=== PATIENT | female | born 1995 | race Caucasian/White ===

== ENCOUNTER → 2024-07-28 | Outpatient (CLI) | payer BC, SELFPAY ==
[2024-07-29 14:49] LABS: BVAG Candida Negative (Negative); Bacterial Vaginosis Markers Negative (Negative); Candida glabrata Negative (Negative); Candida krusei PCR Negative (Negative); Trichomonas Negative (Negative)
== END | disposition home or self-care (01) ==
LOC: SLDO 16:13
PROVIDERS: Referring Provider Specialist; Visit Provider Specialist
DX: N76.0 Acute vaginitis (principal); A59.01 Trichomonal vulvovaginitis; B37.31 Acute candidiasis of vulva and vagina
CPT/HCPCS: 81514

== ENCOUNTER → 2024-08-10 | Outpatient (CLI) | payer BC, SELFPAY ==
[2024-08-10 15:23] LABS: Collection Type, Urine Clean Catch
[2024-08-10 16:55] LABS: Bacteria,Urine Rare; Bilirubin,Urine Negative (Negative); Blood,Urine Negative (Negative); Clarity,Urine Clear (Clear/Hazy); Color,Urine Yellow (Lt Yel-Yel); Glucose, Urine Negative (Negative); Hyaline Casts,Urine < 1 /hpf (0-1); Ketones,Urine Negative (Negative); Leukocyte Esterase,Urine Negative (Negative); Nitrite,Urine Negative (Negative); Protein,Urine Trace (Neg - Trace); RBC,Urine 1 /hpf (0-3); Specific Gravity,Urine 1.034 (1.001-1.035); Squamous Epithelial Cell,Urine 4 /hpf (0-5); Urobilinogen,Urine Negative mg/dL (0.0-1.0); WBC,Urine 1 /hpf (0-5)
[2024-08-10 17:07] LABS: Amphetamine/Methamp Scrn,U Negative (Negative); Barbiturate Screen,Urine Negative (Negative); Benzodiazepines Screen,Urine Negative (Negative); Benzoylecgonine Screen, Ur Negative (Negative); Fentanyl Screen,Urine Negative (Negative); Opiate Screen,Urine Negative (Negative); THC Screen,Urine Positive (Negative)
== END | disposition home or self-care (01) ==
LOC: SLDO 15:10
PROVIDERS: Referring Provider Specialist; Visit Provider Specialist
DX: Z34.81 Encounter for supervision of other normal pregnancy, first trimester (principal)
CPT/HCPCS: 80307; 81001; 87077; 87086; 87186

== ENCOUNTER → 2024-08-23 | Outpatient (CLI) | payer BC, MEDICAID, SELFPAY ==
[2024-08-23 15:29] LABS: Basophils % (Auto) 0 % (0-2.5); Eosinophils # (Auto) 0.4 Thou/mm3 (0.0-0.5); Eosinophils % (Auto) 4 % (0-10); Hematocrit 37.5 % (36.0-46.0); Hemoglobin 12.6 g/dL (12.0-16.0); Immature Granulocytes % (Auto) 0 % (0-0); Immature Granulocytes Auto 0.02 Thou/mm3 (0.00-0.00); Lymphocytes # (Auto) 2.1 Thou/mm3 (1.0-4.8); Lymphocytes % (Auto) 24 % (10-50); Mean Corpuscular HGB Conc 33.6 g/dl (31.0-37.0); Mean Corpuscular Volume 86 fL (80-100); Monocytes # (Auto) 0.5 Thou/mm3 (0.0-0.8); Monocytes % (Auto) 5 % (0-12); Neutrophils # (Auto) 5.9 Thou/mm3 (1.8-7.7); Neutrophils % (Auto) 67 % (37-80); Nucleated Red Blood Cell % 0 /100 WBC (0); Platelet Count 280 Thou/mm3 (140-440); RDW Standard Deviation 39.6 fL (36.4-46.3); Red Blood Count 4.35 Miln/mm3 (4.00-5.20); White Blood Count 8.8 Thou/mm3 (3.6-11.0)
[2024-08-23 15:40] LABS: Glucose Estimated Average 94 mg/dL (80-131); Hemoglobin A1C 4.9 % Hgb (4.8-6.0)
[2024-08-23 15:51] LABS: Creatinine (Component) 0.6 mg/dL (0.6-1.3); Glucose 81 mg/dL (74-106); eGFR > 60 See Note
[2024-08-23 16:03] LABS: Hepatitis B Surface Antigen Non Reactive (Non React); Rubella, IgG Antibody Reactive (Immune)
[2024-08-23 16:32] LABS: Beta HCG,Quantitative 144714 mIU/mL (<5.0)
[2024-08-23 18:11] LABS: HIV (1&2) Antibody Rapid Non-Reactive
[2024-08-26 19:49] LABS: HCV RNA, PCR <15 NOT DETECTED IU/mL
[2024-08-28 06:54] LABS: HCV RNA, PCR Log IU <1.18 NOT DETECTED Log IU/mL
== END | disposition home or self-care (01) ==
PROVIDERS: PCP Family Medicine; Referring Provider Specialist; Visit Provider Specialist
DX: Z34.81 Encounter for supervision of other normal pregnancy, first trimester (principal)
CPT/HCPCS: 36415; 82565; 82947; 83036; 84702; 85025; 86703; 86762; 86850; 86900; 86901; 87340; 87522

== ENCOUNTER → 2024-08-28 | Outpatient (CLI) | payer BC, MEDICAID, SELFPAY ==
[2024-08-28 10:09] LABS: Quantiferon-TB* See Sep Rpt
== END | disposition home or self-care (01) ==
LOC: COPL 09:29
PROVIDERS: PCP Family Medicine; Referring Provider Physician Assistant Medical; Visit Provider Physician Assistant Medical
DX: Z34.81 Encounter for supervision of other normal pregnancy, first trimester (principal)
CPT/HCPCS: 86480

== ENCOUNTER → 2024-10-05 | Outpatient (CLI) | payer BC, MEDICAID, SELFPAY | END | disposition home or self-care (01) | LOC: SLDO 15:34 | PROVIDERS: Referring Provider Specialist; Visit Provider Specialist | DX: Z34.82 Encounter for supervision of other normal pregnancy, second trimester (principal) | CPT/HCPCS: 87086 ==

== ENCOUNTER → 2024-11-29 | Outpatient (CLI) | payer BC, MEDICAID, SELFPAY ==
[2024-11-29 16:50] LABS: Basophils % (Auto) 0 % (0-2.5); Eosinophils # (Auto) 0.3 Thou/mm3 (0.0-0.5); Eosinophils % (Auto) 3 % (0-10); Hematocrit 38.2 % (36.0-46.0); Immature Granulocytes % (Auto) 1 % (0-0); Immature Granulocytes Auto 0.05 Thou/mm3 (0.00-0.00); Lymphocytes # (Auto) 1.7 Thou/mm3 (1.0-4.8); Lymphocytes % (Auto) 18 % (10-50); Mean Corpuscular HGB Conc 31.4 g/dl (31.0-37.0); Mean Corpuscular Hemoglobin 29.1 pg (25.0-35.0); Mean Corpuscular Volume 93 fL (80-100); Monocytes # (Auto) 0.6 Thou/mm3 (0.0-0.8); Monocytes % (Auto) 7 % (0-12); Neutrophils % (Auto) 72 % (37-80); Nucleated Red Blood Cell % 0 /100 WBC (0); Platelet Count 259 Thou/mm3 (140-440); RDW Standard Deviation 46.6 fL (36.4-46.3); Red Blood Count 4.13 Miln/mm3 (4.00-5.20); White Blood Count 9.7 Thou/mm3 (3.6-11.0)
[2024-11-29 17:22] LABS: Alanine Aminotransferase < 7 U/L (10-49); Albumin, Serum 3.9 gm/dL (3.5-5.0); Albumin/Globulin Ratio 1.6 (1.2-2.2); Alkaline Phosphatase 83 U/L (46-116); Anion Gap 10 (7-16); Aspartate Amino Transferase 16 U/L (0-34); BUN/Creatinine Ratio 14 Ratio (12-20); Bilirubin,Total 0.3 mg/dL (0.3-1.2); Blood Urea Nitrogen 10 mg/dL (9-23); Calcium 9.1 mg/dL (8.3-10.6); Calcium (Corrected) 9.2 mg/dL (8.5-10.1); Carbon Dioxide 26.8 mMol/L (20.0-31.0); Chloride 101 mMol/L (98-107); Creatinine (Component) 0.7 mg/dL (0.6-1.3); Free T4 (Free Thyroxine) 1.04 ng/dL (0.89-1.76); Globulin 2.4 gm/dL (2.3-3.5); Glucose 55 mg/dL (74-106); Osmolality,Calculated 272 (275-295); Sodium 138 mMol/L (136-145); Thyroid Stimulating Hormone 2.13 uIU/mL (0.55-4.78); Total Protein 6.3 gm/dL (5.7-8.2); eGFR > 60 See Note
[2024-11-29 18:54] LABS: Glucose Estimated Average 85 mg/dL (80-131); Hemoglobin A1C 4.6 % Hgb (4.8-6.0)
== END | disposition home or self-care (01) ==
PROVIDERS: Referring Provider Physician Assistant Medical; Visit Provider Physician Assistant Medical
DX: R42 Dizziness and giddiness (principal)
CPT/HCPCS: 36415; 80053; 83036; 84439; 84443; 85025; 87086

== ENCOUNTER → 2024-12-28 | Outpatient (CLI) | payer BC, MEDICAID, SELFPAY ==
[2024-12-28 15:49] LABS: Glucose,1 Hour PP 50gm Dose 101 mg/dL (80-140)
== END | disposition home or self-care (01) ==
LOC: SLDO 13:49
PROVIDERS: Referring Provider Physician Assistant Medical; Visit Provider Physician Assistant Medical
DX: Z34.82 Encounter for supervision of other normal pregnancy, second trimester (principal)
CPT/HCPCS: 36415; 82950

== ENCOUNTER → 2025-01-10 | Outpatient (CLI) | payer BC, MEDICAID, SELFPAY ==
[2025-01-10 16:59] LABS: Basophils % (Auto) 0 % (0-2.5); Eosinophils # (Auto) 0.3 Thou/mm3 (0.0-0.5); Eosinophils % (Auto) 3 % (0-10); Hematocrit 37.2 % (36.0-46.0); Immature Granulocytes % (Auto) 1 % (0-0); Immature Granulocytes Auto 0.07 Thou/mm3 (0.00-0.00); Lymphocytes # (Auto) 1.9 Thou/mm3 (1.0-4.8); Lymphocytes % (Auto) 19 % (10-50); Mean Corpuscular HGB Conc 32.3 g/dl (31.0-37.0); Mean Corpuscular Hemoglobin 28.6 pg (25.0-35.0); Mean Corpuscular Volume 89 fL (80-100); Monocytes # (Auto) 0.6 Thou/mm3 (0.0-0.8); Monocytes % (Auto) 6 % (0-12); Neutrophils # (Auto) 7.1 Thou/mm3 (1.8-7.7); Neutrophils % (Auto) 72 % (37-80); Nucleated Red Blood Cell % 0 /100 WBC (0); Platelet Count 229 Thou/mm3 (140-440); RDW Standard Deviation 45.1 fL (36.4-46.3)
[2025-01-10 17:14] LABS: Free T4 (Free Thyroxine) 0.97 ng/dL (0.89-1.76); Thyroid Stimulating Hormone 3.15 uIU/mL (0.55-4.78)
[2025-01-10 17:28] LABS: Syphilis Nonreactive (Nonreactive)
[2025-01-10 18:18] LABS: Ferritin 13 ng/mL (7.3-270.7); Iron 41 mcg/dL (50-170)
== END | disposition home or self-care (01) ==
LOC: SLDO 15:31
PROVIDERS: Referring Provider Physician Assistant Medical; Visit Provider Physician Assistant Medical
DX: R42 Dizziness and giddiness (principal); Z34.83 Encounter for supervision of other normal pregnancy, third trimester
CPT/HCPCS: 36415; 82728; 83540; 84439; 84443; 85025; 86780

== ENCOUNTER → 2025-02-22 | Outpatient (CLI) | payer BC, MEDICAID, SELFPAY ==
[2025-02-23 09:16] LABS: BVAG Candida Negative (Negative); Bacterial Vaginosis Markers Negative (Negative); Candida glabrata Negative (Negative); Candida krusei PCR Negative (Negative); Trichomonas Negative (Negative)
== END | disposition home or self-care (01) ==
PROVIDERS: Referring Provider Specialist; Visit Provider Specialist
DX: Z34.83 Encounter for supervision of other normal pregnancy, third trimester (principal)
CPT/HCPCS: 81514

== ENCOUNTER 2025-03-22 08:01 | Inpatient (IN) | payer BC, MEDICAID, SELFPAY ==
[2025-03-22] VITALS (19 sets, daily range): BP systolic 97–135; BP diastolic 55–84; PULSE 94–113; RESP 16–20; TEMP 36.2–36.9; O2SAT 95–99; BMI 37.0
--- NOTE | 2025-03-22 08:14 | XR_ITS ---
Examination: Complete OB ultrasound greater than 14 weeks Date and time of exam: March 22, 2025 0905 hours INDICATIONS: Labor evaluation pelvic contractions beginning last night Findings: Viable intrauterine single fetus with single amniotic sac presentation cephalic spine maternal right Cardiac motion 150 BPM Placenta fundal grade 3 Umbilical cord insertion 3 vessel seen Amniotic fluid index 18.4 cm Ovaries obscured by bowel gas. Composite estimated gestational age based on BPD, head circumference, abdominal circumference, femur length is 40 weeks 6 days Estimated weight 4272 g. Survey of intracranial anatomy, spinal anatomy, abdominal anatomy, four-chamber heart performed with no abnormalities identified. Impression: Viable uterine gestation cephalic presentation.
[2025-03-22 09:38] LABS: Basophils # (Auto) 0.0 Thou/mm3 (0.0-0.2); Basophils % (Auto) 0 % (0-2.5); Eosinophils # (Auto) 0.2 Thou/mm3 (0.0-0.5); Eosinophils % (Auto) 2 % (0-10); Hematocrit 41.3 % (36.0-46.0); Hemoglobin 13.8 g/dL (12.0-16.0); Immature Granulocytes Auto 0.06 Thou/mm3 (0.00-0.00); Lymphocytes # (Auto) 2.0 Thou/mm3 (1.0-4.8); Lymphocytes % (Auto) 19 % (10-50); Mean Corpuscular HGB Conc 33.4 g/dl (31.0-37.0); Mean Corpuscular Hemoglobin 27.5 pg (25.0-35.0); Mean Corpuscular Volume 82 fL (80-100); Monocytes # (Auto) 0.7 Thou/mm3 (0.0-0.8); Monocytes % (Auto) 6 % (0-12); Neutrophils # (Auto) 7.8 Thou/mm3 (1.8-7.7); Neutrophils % (Auto) 73 % (37-80); Nucleated Red Blood Cell # 0.00 Thou/mm3 (0.00-0.00); Nucleated Red Blood Cell % 0 /100 WBC (0); Platelet Count 218 Thou/mm3 (140-440); RDW Standard Deviation 45.3 fL (36.4-46.3); Red Blood Count 5.02 Miln/mm3 (4.00-5.20); White Blood Count 10.7 Thou/mm3 (3.6-11.0)
[2025-03-22] MEDS: fentaNYL CIT INJ 50 mCg/ML AMP 2ML 100 MCG IVP (09:45)
[2025-03-22 10:17] LABS: Syphilis Nonreactive (Nonreactive)
[2025-03-22] MEDS: RINGERS LACTATED 1000 ML 1,000 ML 100 ML IV (10:45)
[2025-03-22] MEDS: OXYTOCIN in NS 20 units 20 UNIT/1,000 ML BAG 125 UNIT IV (11:25)
[2025-03-22] MEDS: LIDOCAINE HCL 1% 20 ML VIAL INFL (11:34)
[2025-03-22] MEDS: KETOROLAC INJ 30 MG/ML VIAL IVP (11:34)
[2025-03-22] MEDS: HYDROcodone/APAP 5/325 TABLET 2 TAB PO ×2 (15:45→22:54)
--- NOTE | 2025-03-22 18:17 | PD.LDHP ---
Documentation for date of: 03/22/25 at 0820 OB Labor/Induct. HPI History of Present Illness Chief complaint: Contractions : 3 Para: 2 Term pregnancies: 2 pregnancies: 0 Living children: 2 History of Abortions: Spontaneous and Elective: 0 History of Vaginal deliveries: 2 History of sections: No History of : No KORIN: 03/22/25 Gestational Age (weeks): 40 Gestational Age (days): 0 History of present illness: The patient is a 30-year-old -0-0-2 with all care uncomplicated with Dr Cuenca who presented to labor and delivery around 7:15 in the morning on 03/22/2025 in active labor. Patient was 4 to 5 cm dilated on presentation. She was 40-0/[address] Cuenca was trying to induce her for a suspected large for gestational age infant but the patient came in spontaneous labor. She reported good movement,no loss of fluids no vaginal bleeding. Dr Cuenca has been concerned about the size of this baby. The patient states she is abdomen is bigger than last . She has a history of vaginal delivery x 2 in the past, the first baby in 2012 weighed 7 pounds 3 ounces and the second baby in 2021 weighed [address] Cuenca performed an ultrasound at his office 02/22/2025 revealing the baby to be in the vertex presentation with a head circumference 97th percentile and an abdominal circumference 79th percentile.At that time, the baby was weighing 6 pounds 12 ounces. She had a suspected 8 pound 12 ounce baby this admission based on that ultrasound. A bedside ultrasound was called for on presentation revealing a vertex presentation and a 9 pound 6 ounce baby. As the patient was suspected LGA, we did discuss the possibility of a versus a vaginal delivery for a large for gestational age . I told the patient term ultrasound ultrasound could be off by a pound either way. The patient had no problems pushing out her last baby. She opted against a primary to avoid a potential shoulder dystocia. The father the baby was at bedside for the discussion. Of note this is a new FOB this . History of Present Dating criteria: LMP confirmed by 1st trimester US Adequate Care: Yes Ultrasounds: normal mid trimester US Obstetrical complications: none Medical complications: none Labs Maternal Blood Type: O Pos Labs: Negative: RPR, Hepatitis B, Rubella Titre, HIV, Chlamydia, Gonorrhea and Group Beta Strep and Unknown: Herpes Type 1, Herpes Type 2 and Covid-19 Past Medical History Surgical History SURGICAL: Negative Section Past Medical History Comments PMH COMMENT: Patient denies any history of gestational diabetes Meds Home Medications and Allergies Home Medications ?Medication ?Instructions ?Recorded ?Confirmed ?Type No Known Home Medications 03/22/25 03/22/25 History Allergies Allergy/AdvReac Type Severity Reaction Status Date / Time No Known Allergies Allergy Verified 03/22/25 08:23 OB Exam Physical Exam Vital signs: Temp Pulse Resp BP Pulse Ox O2 Del Method 98.4 F 102 H 16 100/58 L 98 Room Air 03/22/25 12:55 03/22/25 13:26 03/22/25 13:10 03/22/25 13:26 03/22/25 08:25 03/22/25 12:55 Detailed Labor and Delivery Exam Effacement (%): 80 Cervix position: mid station: -2 Consistency: soft Presentation: Vertex Membranes: intact monitor accelerations: 15x15 monitor decelerations: None [facility] variability: Moderate (11-25) Contraction frequency (min): Every 2 to 3 minutes Contraction intensity: Strong OB Results Labs 03/22/25 08:35 Labs: Short CBC 03/22/25 Range/Units 08:35 WBC 10.7 (3.6-11.0) Thou/mm3 Hgb 13.8 (12.0-16.0) g/dL Hct 41.3 (36.0-46.0) % Plt Count 218 (140-440) Thou/mm3 OB Assessment & Plan Assessment and Plan (1) Supervision of high risk in third trimester: Status: Acute (2) Large for gestational age fetus affecting management of mother: Status: Acute Assessment and plan: Estimated weight on admission 9 pounds 6 ounces. Discussed possibility of shoulder dystocia and the only way to avoid shoulder dystocia is a . All questions were answered to the best of my ability. Both patient and their father the baby opt to continue to labor. World Language Teacher NICU nurse and extra staff will be available at delivery in the event of a shoulder dystocia. (2) Large for gestational age fetus affecting management of mother Qualifiers: Fetus number: single or unspecified fetus Trimester: third trimester Qualified Code(s): O36.63X0 - Maternal care for excessive growth, third trimester, not applicable or unspecified
--- NOTE | 2025-03-22 18:37 | OBDSUM_ITS ---
Data (Ramirez) Data Hx Section: No Maternal Blood Type: O Pos Rubella Titre: Positive RPR: Non-reactive Labs: Negative: RPR, Hepatitis B, HIV, Chlamydia, Gonorrhea and Group Beta Strep and Unknown: Herpes Type 1 and Herpes Type 2 : 3 Term: 2 : 0 Livin Abortions: Spontaneous & Theraputic: 0 Delivery Data (Ramirez) Labor Data Initiation of labor: Spontaneous Induction/Augmentation Agent: None ROM date: 03/22/25 ROM time: 10:14 Amniotic membrane rupture type: Artificial Amniotic fluid description: Clear Delivery Data EDC: 03/22/25 EDC calculated by:: LMP/early US confirmation Date of arrival to unit: 03/22/25 Time of arrival to unit: 07:15 Onset of labor date: 03/22/25 Onset of labor time: 06:00 Complete dilation date: 03/22/25 Complete dilation time: 10:58 delivery date: 03/22/25 Breese delivery time: 11:19 Gestational age (weeks): 40 Gestational age (days): 0 Placenta delivery date: 03/22/25 Placenta delivery time: 11:25 Stage 1 total time: Labor - Stage 1 Duration 4 hours and 58 minutes Delivered by: dr french Delivery nurse: cora Colonorn nurse: dilma leavitt Rolling Machine Operator Automatic at delivery: Yes Support person(s) at delivery: frederick Other staff at delivery: sachin gallardo rn Delivery Method Delivery method: Normal Vaginal Delivery Presentation: Vertex position: OA Anesthesia Type Anesthesia Type: None Delivery Room Medications Delivery room medications: Lidocaine (local) Placenta Placenta delivery description: Spontaneous Cord blood sent to lab: Yes cord blood collection: Cord Blood Type Episiotomy Episiotomy description: Right Mediolateral Perineal repair Sutures used for repair: 4.0 Chromic and other (2-0 chromic) EBL Estimated blood loss (ml): 300 Umbilical Cord cord description: 3 Vessels Additional Procedures The patient is a 30-year-old -0-0-2 presented to labor and delivery approximately 7:00 in the morning 03/22/2025 at 40-0/7 weeks in active labor. All care was uncomplicated and on the chart with Dr Cuenca. The patient had a large abdominal girth and a suspected LGA baby. An ultrasound on admission revealed a vertex presentation suspected 9 pound 6 ounce infant. Patient had had 2 vaginal deliveries prior, the largest baby was 8 pounds 5 ounces without complications. The patient rapidly progressed to 9 cm dilatation on her own without Pitocin augmentation and I AROMed her bag of water at 1014 in the morning. She went on to progress to complete by 1058 in the morning and pushed approximately 20 minutes delivering a liveborn male at 1119. Findings :liveborn male in the ALICIA presentation with no nuchal cord and no meconium. Apgars were 9 and 9 ,weight was 10 pounds 6 ounces. The placenta was complete spontaneous grossly normal. A right mediolateral episiotomy had been performed at delivery that was repaired in the standard fashion using 2-0 and 4-0 chromic. Complications were none. No shoulder dystocia was encountered at all. The patient and the baby were in stable condition the delivery room. Of note at delivery a NICU nurse was present as was that RT and the pediatric attending in the event of a potential shoulder dystocia. Complications Complications: None Breese Data (Ramirez) Data Breese's name: Regis order: 1 's gender: Male Identification band number: [id number] weight (gms): 4720 g Weight (pounds): 10 lbs and 6.5 ozs length: 54 cm 1 minute: 8 5 minutes: 9 Additional Comments Additional comments: Head circumference 38 cm. Abdominal circumference 39 cm. Length 21 cm.
[2025-03-22 18:39] LABS: Basophils # (Auto) 0.0 Thou/mm3 (0.0-0.2); Basophils % (Auto) 0 % (0-2.5); Eosinophils # (Auto) 0.1 Thou/mm3 (0.0-0.5); Eosinophils % (Auto) 1 % (0-10); Hematocrit 35.3 % (36.0-46.0); Hemoglobin 11.5 g/dL (12.0-16.0); Immature Granulocytes Auto 0.08 Thou/mm3 (0.00-0.00); Lymphocytes # (Auto) 1.5 Thou/mm3 (1.0-4.8); Lymphocytes % (Auto) 10 % (10-50); Mean Corpuscular HGB Conc 32.6 g/dl (31.0-37.0); Mean Corpuscular Hemoglobin 27.9 pg (25.0-35.0); Mean Corpuscular Volume 86 fL (80-100); Monocytes # (Auto) 1.2 Thou/mm3 (0.0-0.8); Monocytes % (Auto) 8 % (0-12); Neutrophils # (Auto) 11.9 Thou/mm3 (1.8-7.7); Neutrophils % (Auto) 81 % (37-80); Nucleated Red Blood Cell # 0.00 Thou/mm3 (0.00-0.00); Nucleated Red Blood Cell % 0 /100 WBC (0); Platelet Count 195 Thou/mm3 (140-440); RDW Standard Deviation 47.2 fL (36.4-46.3); Red Blood Count 4.12 Miln/mm3 (4.00-5.20); White Blood Count 14.8 Thou/mm3 (3.6-11.0)
[2025-03-22] MEDS: IBUPROFEN TAB 400 MG TABLET 800 MG PO (19:56)
[2025-03-23 00:15] VITALS: BP 98/63; PULSE 95; RESP 18; TEMP 37.2; O2SAT 96
[2025-03-23 04:30] VITALS: BP 113/73; PULSE 90; RESP 18; TEMP 36.9; O2SAT 96
[2025-03-23 07:15] VITALS: BP 121/72; PULSE 94; RESP 16; TEMP 36.9; O2SAT 97
[2025-03-23] MEDS: HYDROcodone/APAP 5/325 TABLET 2 TAB PO ×2 (07:19→15:19)
--- NOTE | 2025-03-23 07:41 | XR_ITS ---
Examination: AP pelvis single view Technique: AP supine pelvis single view Date and time: March 23, 2025 0830 hrs. Indications: Status post delivery with pelvic pain Findings: 7 mm separation at the symphysis pubis Hips bones of the pelvis intact Impression: 7 mm separation at the symphysis
--- NOTE | 2025-03-23 08:17 | PD.LDPPPRG ---
Subjective Subjective Interval history: Pelvic pain since delivery that requires Bondurant and Motrin but can cope and wants to go home. Pelvic X ray shows a 7 mm symphysis diasthesis. Exam Vital Signs Temp Pulse Resp BP Pulse Ox O2 Del Method 98.5 F 90 18 113/73 96 Room Air 03/23/25 04:30 03/23/25 04:30 03/23/25 04:30 03/23/25 04:30 03/23/25 04:30 03/23/25 04:30 Routine Respiratory Exam Comments: CTA B/L Routine Cardiovascular Exam Comments: RRR Routine Abdominal Exam Comments: Fundus firm, nontender Tenderness over symphsis pubis Routine Extremities Exam Comments: Nontender or edema. Objective Labs 03/22/25 18:10 Labs: Laboratory Results - last 24 hr 03/22/25 03/22/25 08:35 18:10 WBC 10.7 14.8 H RBC 5.02 4.12 Hgb 13.8 11.5 L D Hct 41.3 35.3 L MCV 82 86 MCH 27.5 27.9 MCHC 33.4 32.6 RDW Std Deviation 45.3 47.2 H Plt Count 218 195 Neut % (Auto) 73 81 H Lymph % (Auto) 19 10 [place] % (Auto) 6 8 Eos % (Auto) 2 1 Baso % (Auto) 0 0 Neut # (Auto) 7.8 H 11.9 H Lymph # (Auto) 2.0 1.5 [place] # (Auto) 0.7 1.2 H Eos # (Auto) 0.2 0.1 Baso # (Auto) 0.0 0.0 Immature Gran # (Auto) 0.06 H 0.08 H Absolute Nucleated RBC 0.00 0.00 Immature Gran % 1 H 1 H Nucleated RBC % 0 0 Syphilis Serology Nonreactive Blood Type O Positive Antibody Screen NEGATIVE Blood Bank Wristband ID Yes Impressions Impression: PPD #1 S/P of macrosomic infant Symphysis pubis diasthesis Home with Bondurant and NSAID prn Discussed avoiding activites that make the symphysis pain worse and follow up in the office if pain not managed well with Motrin after 1 week. Assessment & Plan Problem List (1) Supervision of high risk in third trimester: Status: Acute (2) Large for gestational age fetus affecting management of mother: Status: Acute Time Spent With Patient Time: Total time spent is greater than 50% in coordination of care (as documented) at patient's floor/unit and/or counseling patient:
--- NOTE | 2025-03-23 11:56 | PD.LDDS ---
DS: Providers Provider Date of admission: 03/22/25 08:10 Primary care physician: Physician No Primary/Family Admitting Provider: Katja Norman MD ([facility]) Attending Provider on Admission: Fabrizio Cuenca MD Consults: 03/22/25 12:29 Referral Routine Comment: Attending Provider on DC: Fabrizio Cuenca MD Discharging Provider: Fabrizio Cuenca MD DS: Diagnosis Problem List Completed Was Problem List Reviewed/Reconciled?: Yes Summary/Hosp Course Brief History: The patient is a 30-year-old -0-0-2 with all care uncomplicated with Dr Cuenca who presented to labor and delivery around 7:15 in the morning on 03/22/2025 in active labor. Patient was 4 to 5 cm dilated on presentation. She was 40-0/[address] Cuenca was trying to induce her for a suspected large for gestational age but the patient came in spontaneous labor. She reported good movement,no loss of fluids no vaginal bleeding. Dr Cuenca has been concerned about the size of this baby. The patient states she is abdomen is bigger than last . She has a history of vaginal delivery x 2 in the past, the first baby in 2012 weighed 7 pounds 3 ounces and the second baby in 2021 weighed [address] Cuenca performed an ultrasound at his office 02/22/2025 revealing the baby to be in the vertex presentation with a head circumference 97th percentile and an abdominal circumference 79th percentile.At that time, the baby was weighing 6 pounds 12 ounces. She had a suspected 8 pound 12 ounce baby this admission based on that ultrasound. A bedside ultrasound was called for on presentation revealing a vertex presentation and a 9 pound 6 ounce baby. As the patient was suspected LGA, we did discuss the possibility of a versus a vaginal delivery for a large for gestational age . I told the patient term ultrasound ultrasound could be off by a pound either way. The patient had no problems pushing out her last baby. She opted against a primary to avoid a potential shoulder dystocia. The father the baby was at bedside for the discussion. Of note this is a new FOB this . Peripartum Data Delivery Method: Normal Vaginal Delivery Episiotomy Description: Right Mediolateral Laceration Description: see Delivery Summary [place] 1: Disposition of : home Time Spent with Patient Time attestation: Total time spent providing and/or coordinating discharge services: Exam Vital Signs Temp Pulse Resp BP Pulse Ox O2 Del Method 98.4 F 94 16 121/72 97 Room Air 03/23/25 07:15 03/23/25 07:15 03/23/25 07:15 03/23/25 07:15 03/23/25 07:15 03/23/25 07:15 Discharge Plan Plan Patient Disposition: HOME (Self Care) Patient condition on transfer: Stable Prescriptions/Referrals Prescriptions/Med Rec: New hydrocodone-acetaminophen 10-325 mg tablet 1 tab PO Q4H MDD 6 PRN (Reason: pain) Qty: 20 0RF ibuprofen 800 mg tablet 800 mg PO Q6H Qty: 30 0RF Referrals: No Primary/Family,Physician [Primary Care Provider] - Patient/Caregiver Discharge Instructions Discharge Activity: activity as tolerated Other Discharge Activity Instructions:: Follow up office 6 weeks. I sent the above prescriptions from my office to her pharmacy in [place] as it is open today. Print Language: Romanian Stand Alone Forms: Rosy Award Info., Patient Portal Info Letter Discharge Order Discharge Orders: Discharge (Routine); Ordered 03/23/25 Ordered By: Fabrizio Cuenca Planned Discharge Date 03/23/25
[2025-03-23 16:05] VITALS: BP 103/69; PULSE 92; RESP 17; TEMP 36.9
== END 2025-03-23 16:35 | disposition home or self-care (01) | DRG 807 ==
LOC: S4SX 03-23 05:49 → S4NX 03-23 05:49
PROVIDERS: Admitting Provider Obstetrics & Gynecology; Visit Provider Specialist
DX: O36.63X0 Maternal care for excessive fetal growth, third trimester, not applicable or unspecified (principal); Z37.0 Single live birth; Z3A.40 40 weeks gestation of pregnancy
CPT/HCPCS: 36415; 59025; 59409; 72170; 76805; 80307; 85025; 86780; 86850; 86900; 86901; J1885; J2590; J3010; J3490; J7120; A9270